=== PATIENT | female | born 1995 | race Caucasian/White ===

== ENCOUNTER 2018-09-15 14:37 | Emergency (ER) | payer MEDICAID, OTHER ==
[~2018-09-15] VITALS: Ht 177.8 cm; Wt 69.9 kg
--- NOTE | 2018-09-15 14:39 | NUR ---
NO ANSWER WHEN CALLED FROM [facility]
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
[2018-09-15] MEDS ORDERED: LORazepam 2 MG/ML, 1ML IVPush ONE (15:00)
[2018-09-15] MEDS ORDERED: LORazepam 2 MG/ML, 1ML ONE (15:09)
--- NOTE | 2018-09-15 15:11 | NUR ---
Pt medicated per [facility]. Pt tearful, denies needs.
[2018-09-15 15:25] LABS: BASOPHILS # (AUTO) 0.02 x10^3/uL (0-0.3); BASOPHILS % (AUTO) 0 % (0-1); EOSINOPHILS # (AUTO) 0.12 x10^3/uL (0-0.8); EOSINOPHILS % (AUTO) 2 % (1-7); LYMPHOCYTES # (AUTO) 1.59 x10^3/uL (1-6.1); LYMPHOCYTES % (AUTO) 22 % (22-44); MD NO; MEAN CORPUSCULAR HEMOGLOBIN 28.8 pg (27.0-34.8); MEAN CORPUSCULAR HGB CONC 34.3 g/dL (32.4-35.8); MEAN CORPUSCULAR VOLUME 83.9 fL (80-100); MEAN PLATELET VOLUME 8.5 fL (7.4-10.4); MONOCYTES # (AUTO) 0.68 x10^3/uL (0-1.4); MONOCYTES % (AUTO) 9 % (2-9); NEUTROPHILS # (AUTO) 4.99 x10^3/uL (1.8-8.0); NEUTROPHILS % (AUTO) 68 % (42-75); PLATELET COUNT 300 x10^3/uL (130-400); RED BLOOD COUNT 4.56 x10^6/uL (3.82-5.3); RED CELL DISTRIBUTION WIDTH 13.4 % (9.6-15.2)
[2018-09-15 15:34] LABS: ALBUMIN 3.2 g/dL (3.4-5.0); ANION GAP 6 mmol/L (5-15); CHLORIDE 107 mmol/L (98-107); CREATININE 0.66 mg/dL (0.55-1.02)
--- NOTE | 2018-09-15 15:39 | NUR ---
Pt provided with warm blanket per request. Pt denies other needs.
--- NOTE | 2018-09-15 16:11 | NUR ---
Pt given water per request, denies other needs.
[2018-09-15 16:45] VITALS: BP 116/74
== END 2018-09-15 16:47 | disposition home or self-care (01) ==
LOC: ED 16:03
DX: G40.309 Generalized idiopathic epilepsy and epileptic syndromes, not intractable, without status epilepticus (principal); F41.1 Generalized anxiety disorder
CPT/HCPCS: 36415; 80048; 82040; 84703; 85025; 96374; 99283; J2060